=== PATIENT | male | born 1975 | race Caucasian/White ===

== ENCOUNTER 2020-03-15 12:32 | Emergency (ER) | payer BC ==
[~2020-03-15] VITALS: Ht 177.8 cm; Wt 86.2 kg
[2020-03-15] MEDS ORDERED: METRONIDAZOLE500 M4 PO (13:41)
[2020-03-15] MEDS ORDERED: CIPRO500 MG PO (13:41)
[2020-03-15 13:42] LABS: ABSOLUTE NEUTROPHILS 8.8 thou/uL (1.4-8.2); BASOPHILS 0.4 % (0.0-2.0); EOSINOPHILS 1.9 % (0.0-3.0); HEMOGLOBIN 16.5 gm/dL (14.0-18.0); LYMPHOCYTES 13.2 % (24.0-44.0); MCH 29.9 pg (26.0-34.0); MCHC 33.8 g/dL (28.0-37.0); MCV 88.5 fL (80.0-100.0); MONOCYTES 13.2 % (1.0-8.0); PLATELET COUNT 268 thou/uL (150-400); POLYS 71.3 % (36.0-66.0); RBC 5.53 mil/uL (4.50-6.00); WBC 12.4 thou/uL (4.0-11.0)
[2020-03-15 14:00] LABS: CALCIUM 9.2 mg/dL (8.5-10.1); CREATININE 1.3 mg/dL (0.7-1.3); POTASSIUM 4.1 mmol/L (3.5-5.1)
[2020-03-15 14:04] LABS: TOTAL BILIRUBIN 0.7 mg/dL (0.2-1.0)
[2020-03-15] MEDS ORDERED: NORCO7.5 PO (16:09)
[2020-03-15 16:38] VITALS: BP 132/88
== END 2020-03-15 16:30 | disposition home or self-care (01) ==
LOC: ER 12:32
PROVIDERS: Physician Assistant
DX: K57.32 Diverticulitis of large intestine without perforation or abscess without bleeding (principal); Z79.2 Long term (current) use of antibiotics; Z79.899 Other long term (current) drug therapy; Z20.828 Contact with and (suspected) exposure to other viral communicable diseases

== ENCOUNTER → 2020-03-29 | Outpatient (CLI) | payer OTHER ==
[~2020-03-29] MED LIST: CIPRO500 MG PO; METRONIDAZOLE500 M4 PO; NORCO7.5 PO
== END ==
LOC: CAT 11:35
PROVIDERS: ATTEND Neuromusculoskeletal Medicine & OMM
DX: Z13.6 Encounter for screening for cardiovascular disorders (principal); I25.10 Atherosclerotic heart disease of native coronary artery without angina pectoris; E78.00 Pure hypercholesterolemia, unspecified